=== PATIENT | male | born 1990 | race Caucasian/White ===

== ENCOUNTER 2017-12-30 20:01 | Emergency (ER) | payer BC, OTHER ==
[2017-12-30] MEDS ORDERED: KETOROLAC 60 MG INJ IM (23:35)
[2017-12-31] MEDS ORDERED: HYDROCODONE/APAP (5/325) TAB PO
[2017-12-31] MEDS: IBUPROFEN 600 MG TAB PO (00:19)
== END 2017-12-31 02:30 | disposition home or self-care (01) ==
LOC: FTE 12-31 02:30
DX: S82.891A Other fracture of right lower leg, initial encounter for closed fracture (principal); V19.5 Pedal cycle passenger injured in collision with other and unspecified motor vehicles in traffic accident
CPT/HCPCS: 29515; 73550; 73562; 73590; 73610-RT; 73630; 99283-25